=== PATIENT | female | born 1930 | race Caucasian/White ===

== ENCOUNTER 2018-12-26 19:15 | Inpatient (IN) | payer MEDICARE, OTHER ==
--- NOTE | 2018-12-26 19:38 | ED Physician Chart ---
ED Chief Complaint/HPI - Patient Information Date Seen:: 12/26/18 Time Seen:: 19:33 Chief Complaint:: increased depression History of Present Illness:: 88 yr old female from correction with increased depression pt awake answering some questions Allergies:: Allergies Allergy/AdvReac Type Severity Reaction Status Date / Time codeine Allergy Verified 12/26/18 19:22 iodine Allergy Verified 12/26/18 19:23 morphine Allergy Verified 12/26/18 19:21 Penicillins Allergy Verified 12/26/18 19:21 shellfish derived Allergy Verified 12/26/18 19:25 Sulfa (Sulfonamide Allergy Verified 12/26/18 19:22 Antibiotics) vancomycin Allergy Verified 12/26/18 19:23 bellpepper Allergy Uncoded 12/26/18 19:26 iv dye Allergy Uncoded 12/26/18 19:24 Vitals:: Vital Signs - 8 hr 12/26/18 19:26 Temp 97.8 F HR 94 RR 16 BP 156/82 O2 Sat % 97 ED Review of Systems - Review of Systems General/Constitutional: No fever Skin: No skin lesions Head: No headache Eyes: No loss of vision ENT: No earache Neck: No neck pain Cardio Vascular: No chest pain Pulmonary: No SOB GI: No vomiting Musculoskeletal: Bone or joint pain Endocrine: No polyuria Psychiatric: Prior psych history Hematopoietic: No bruising Allergic/Immuno: No urticaria Neurological: No syncope ED Past Medical History - Past Medical History Past Medical History: Other (see nurses notes) ED Physical Exam - Physical Examination General/Constitutional: Well-developed, well-nourished, Alert Head: Atraumatic Eyes: Lids, conjuctiva normal Skin: Nl inspection ENMT: External ears, nose nl Neck: Nontender Respiratory: Nl effort/Exclusion Cardio Vascular: RRR GI: No tenderness/rebounding/guarding : No CVA tenderness Other Extremities comments:: lt knee total knee replacement with knee flexion ctx Misc: Normal back (pt alert answering some questions) ED Assessment - Assessment General Assessment: elderly female geropsych increased depression ED Septic Shock - . Is Septic Shock (SBP<90, OR Lactate>4 mmol\L) present?: No - <6hrs of presentation: Vital Signs: Vital Signs - 8 hr 12/26/18 19:26 Temp 97.8 F HR 94 RR 16 BP 156/82 O2 Sat % 97 ED Reassessment (Disposition) - Reassessment Reassessment:: increased depression geropsych evaluation - Diagnosis Diagnosis:: as above - Patient Disposition Admitted to:: [facility] Condition at Disposition:: Stable
[2018-12-26 19:52] LABS: % BASOPHILS 0.2 % (0.0-2.0); % EOSINOPHILS 3.5 % (0.0-5.0); % LYMPHOCYTES 15.5 % (20.0-50.0); % MONOCYTES 10.9 % (2.0-10.0); % NEUTROPHILS 69.9 % (40.0-80.0); EOSINOPHILE ABSOLUTE 0.3 Th/cmm (0.1-0.4); HEMATOCRIT 40.7 % (41.0-60); HEMOGLOBIN 13.3 gm/dL (12-16); LYMPHOCYTE ABSOLUTE 1.4 Th/cmm (1.5-3.0); MEAN CELL VOLUME 84.6 fl (81-100); MEAN CORPUSCULAR HEMOGLOBIN 27.5 pg (27.0-31.0); MEAN CORPUSCULAR HGB CONC 32.5 pg (28.0-36.0); NEUTROPHILE ABSOLUTE 6.5 Th/cmm (1.8-8.0); PLATELET COUNT 337 Th/cmm (150-400); RED BLOOD COUNT 4.81 Mil/cmm (3.80-5.20); RED CELL DISTRIBUTION WIDTH 16.2 % (11.5-20.0); WHITE BLOOD COUNT 9.2 Th/cmm (4.8-10.8)
[2018-12-26 20:12] LABS: ALB/GLOB RATIO 1.1 (1.0-1.8); ALBUMIN 3.7 gm/dL (3.7-5.3); ALKALINE PHOSPHATASE 138 U/L (34-104); ANION GAP 12.5 (7.0-16.0); BILIRUBIN,TOTAL 0.3 mg/dL (0.3-1.0); BUN - UREA NITROGEN 33 mg/dL (7-25); CALCIUM SERUM 10.2 mg/dL (8.6-10.3); CARBON DIOXIDE 25.7 mEq/L (21.0-31.0); CHLORIDE 102 mEq/L (98-107); CREATININE - SERUM 0.7 mg/dL (0.6-1.2); GLUCOSE 140 mg/dL (70-105); POTASSIUM SERUM 3.2 mEq/L (3.5-5.1); SGOT 12 U/L (13-39); SGPT/ALT 8 U/L (7-52); SODIUM SERUM 137 mEq/L (136-145); TOTAL PROTEIN,SERUM 7.2 gm/dL (6.0-8.3)
[2018-12-26] MEDS ORDERED: KCL 20mEq/100mL Premix 20 MEQ/100 ML PIGGYBACK IV SCH (20:58)
[2018-12-26] MEDS ORDERED: Potassium Chloride 20 mEq ER Tab PO ONE ×2 (21:37→21:38)
[2018-12-26 23:19] VITALS: BP 147/82
[2018-12-26] MEDS ORDERED: Magnesium Hydroxide (MOM) 30 mL UDC PO PRN (23:19)
[2018-12-27] MEDS ORDERED: Albuterol/Ipratropium Neb 3 ML AERS HHN PRN (10:26)
[2018-12-27] MEDS ORDERED: Magnesium Hydroxide (MOM) 30 mL UDC PO PRN (10:26)
[2018-12-27] MEDS ORDERED: DOCUSATE SODIUM 50 MG PO SCH (10:30)
[2018-12-27] MEDS ORDERED: METOLAZONE 2.5 MG PO SCH (10:30)
[2018-12-27] MEDS ORDERED: DILTIAZEM HCL 180 MG PO SCH (10:30)
[2018-12-27] MEDS ORDERED: FAMOTIDINE 20 MG PO SCH (10:30)
[2018-12-27] MEDS ORDERED: Non-Formulary Item 1 EA (Multivitamin [Multivitamins] 1 CAP) PO SCH (10:30)
[2018-12-27] MEDS: Aspirin 81mg Chewable Tab PO SCH (15:13)
[2018-12-27] MEDS: Ferrous Sulfate 325 MG TAB PO SCH (15:13)
[2018-12-27] MEDS ORDERED: Non-Formulary Item 1 EA (Pravastatin Sodium [Pravastatin*] 40 MG) PO SCH (21:00)
--- NOTE | 2018-12-27 21:22 | History & Physical ---
ADMIT DATE: 12/27/2018 CHIEF COMPLAINT: Hallucinations, agitated, confused. HISTORY OF PRESENT ILLNESS: This is an 88-year-old female with history of hypertension, hypercholesterolemia, anemia, GERD, history of stroke, admitted from nursing facility secondary to above complaints under the service of Dr. Martinez. The patient denies chest pain or shortness of breath. PAST MEDICAL HISTORY: As mentioned in history of present illness. PAST SURGICAL HISTORY: Denies surgeries in the past. ALLERGIES: CODEINE, IODINE, MORPHINE, PENICILLIN. MEDICATIONS: Albuterol, Atrovent, vitamin C, Dilaudid, ibuprofen, Tylenol, aspirin, diltiazem, Colace, famotidine, iron, hydralazine, metolazone, multivitamins, Zofran, paroxetine, Zolpidem, pravastatin, sennoside. FAMILY HISTORY: Noncontributory. SOCIAL HISTORY: The patient is a [facility] patient requiring 24-hour total care. REVIEW OF SYSTEMS: This is limited secondary to pain, comatose state. We will try to obtain more detailed review of systems at a later date by talking to other family members. There is a daughter, Barbara Salvador at [phone]. We will also try to get information from nursing staff at her facility in [place] at [phone]. PHYSICAL EXAMINATION: VITAL SIGNS: Blood pressure 128/67, respiration 20, pulse 86, temperature 97.9. GENERAL: Elderly female, appears her stated age, mildly obese. NECK: Supple. No mass. LUNGS: Equal breath sounds, few rhonchi. HEART: Regular rate and rhythm with systolic ejection murmur. ABDOMEN: Soft, globular. EXTREMITIES: Positive excoriations, positive contracture, atrophy. ____ on right upper extremity and right lower extremity. Gait not seen. LABORATORY DATA: WBC 9, hemoglobin 13, platelets 337. Sodium 137, potassium is 3.2, BUN 33, creatinine 0.7, blood sugar 140, alkaline phosphatase 138. ASSESSMENT AND PLAN: Hypertension, hypercholesterolemia, anemia, hypokalemia, gastroesophageal reflux disease, obesity, history of stroke with right-sided contracture and weakness. We will continue the patient on aspirin and cholesterol medications. Continue calcium channel blanquita. The patient was given potassium. Continue fall precautions. Continue with current care. We will follow with you, Dr. Martinez. [facility]# [id number]
--- NOTE | 2018-12-28 01:21 | Psychiatric Evaluation ---
DATE OF SERVICE: PSYCHIATRIC INITIAL EVALUATION AND MENTAL STATUS EXAMINATION AGE: 88. SEX: Female. PHYSICIAN: Dr. Martinez. CHIEF COMPLAINT: Increased depression. HISTORY OF PRESENT ILLNESS: The patient is an 88-year-old female who was transferred to the hospital from [facility] because of increased depression. The patient also has not been able to eat and her appetite is much decreased, also questionable weight loss. The patient also has been having lack of motivations and lack of energy. She has been also interacting minimally with others and wants to be left alone most of the time. The patient also has been having sad affect. Also, her fluid intake has been poor. PAST PSYCHIATRIC HISTORY: The patient has history of dementia. PAST MEDICAL HISTORY: The patient has a history of anemia as well as gastroesophageal reflux disease and hypertension. SOCIAL HISTORY: The patient lives in [facility]. No known alcohol or street drug use. ALLERGIES: The patient is allergic to IODINE, CODEINE, SULFA, PENICILLIN, IV DYE, PEREZ PEPPER AND SHELLFISH. MENTAL STATUS EXAMINATION: The patient appears her stated age. Flat affect. Depressed mood. The patient kept staring at me and she did not answer any questions. The patient is also guarded and withdrawn. She seemed to be confused. The patient did not answer questions regarding hallucinations or delusions or regarding suicide or homicide. The patient is alert, but seems to be disoriented to place, person and the situation. Impaired immediate, recent and remote memories that she was not even able to tell me her birthday, which might be because of either dementia or because of her depression. Poor insight and poor judgment. ASSESSMENT: PRIMARY DIAGNOSIS: Unspecified psychosis. Rule out depressive mood disorder with psychosis. SECONDARY DIAGNOSIS: Dementia, moderate to severe, with psychotic features. TREATMENT PLAN: We will monitor the patient's behavior and condition closely. We will continue Paxil same dose and will adjust psychotropic medications. We will work on behavioral modification. ESTIMATED LENGTH OF STAY: 5-7 days. THE PATIENT'S STRENGTHS AND WEAKNESSES: The patient's strength is not clear at this time. Weaknesses are her ineffective coping. AFTER DISCHARGE PLANS: The patient will return to [facility] and outpatient treatment and followup will continue there. CRITERIA FOR DISCHARGE: The patient will not be as depressed and will stabilize psychotropic medications and will establish outpatient treatment plans. JOB# [id number]
--- NOTE | 2018-12-28 06:30 | Progress Notes ---
DATE: 12/28/2018 PSYCHIATRIC NOTE SUBJECTIVE: Chart was reviewed and the patient interviewed. Also discussed the patient's condition with the staff and reviewed records and labs. The patient is still quiet and does not talk much. She seems to be selectively mute. The patient also is still easily agitated, especially during helped her with her ADLs and the patient wants to be left alone. She seems to be more depressed and she still has poor appetite and her eating and drinking are poor. Otherwise, the patient is cooperative and compliant with taking her medications. ASSESSMENT: The patient seems to be still severely depressed. TREATMENT PLAN: The patient has been taking Paxil at a dose of 20 mg with no benefits. We will cross-titrate Paxil with Lexapro and will decrease Paxil to 10 mg every day and to start Lexapro 10 mg every day. Also, continue to work on behavior modification and followup. JOB# [id number]
[2018-12-28] MEDS: Multivitamin Tab PO SCH (09:13)
[2018-12-28] MEDS: Metolazone 5 MG TAB PO SCH (09:13)
[2018-12-28] MEDS: Diltiazem CD 180 mg C24 PO SCH (09:13)
[2018-12-28] MEDS: Ferrous Sulfate 325 MG TAB PO SCH (09:13)
[2018-12-28] MEDS: Aspirin 81mg Chewable Tab PO SCH (09:14)
--- NOTE | 2018-12-28 12:15 | History & Physical ---
ADMIT DATE: INTERNAL MEDICINE CONSULT REASON FOR CONSULT: Medical management, history of hypertension, hyperlipidemia. HISTORY OF PRESENT ILLNESS: The patient is an 88-year-old female who resides at a local snf with history significant for depression, hyperlipidemia, essential hypertension, chronic anemia, acid reflux disease who was transferred to the ER secondary to worsening depression. The patient has been admitted to the Geropsych memb[facility] and appears to be comfortable with no complaints. PAST MEDICAL HISTORY: As noted above. She also per notes has a history of previous shortness of breath likely secondary to his CHF. History of CHF. She has chronic lung disease. PAST SURGERIES: History of left total knee replacement. FAMILY HISTORY: Noncontributory to this admission. SOCIAL HISTORY: Denies any tobacco, ETOH or illicit drug usage. ALLERGIES: Allergic to SULFA, CODEINE, VANCOMYCIN and IODINE. She also is allergic to some foods including PEREZ PEPPERS and SHELLFISH. OUTPATIENT MEDICATIONS: Multivitamins 1 tab every day, vitamin C 500 mg b.i.d., famotidine 20 mg q.a.m., vitamin D3 at 1000 international units daily, pravastatin 40 mg daily, aspirin 81 daily, senna and docusate 8.6/50 mg 1 tab b.i.d., metolazone 2.5 daily, iron sulfate 325 daily, hydralazine 10 mg q. 4 p.r.n., diltiazem 180 mg daily, Atrovent via nebulizer q. 6 p.r.n. for SOB, Paxil 20 mg daily. REVIEW OF SYSTEMS: CONSTITUTIONAL: She denies any fever or chills. No recent weight loss. CARDIOVASCULAR: Denies any chest pain, any CHF symptomatology. PULMONARY: No cough or phlegm production, no shortness of breath. GASTROINTESTINAL: No bowel habit changes. GENITOURINARY: No bladder habit changes. NEUROLOGIC: No changes in vision, no headaches. PHYSICAL EXAMINATION: VITAL SIGNS: Temperature 98.0, pulse 82, respirations 19, BP 147/82, satting 98% on room air. GENERAL: She is a well-developed female who appears to be comfortable, in no distress. HEAD AND NECK: Normocephalic, atraumatic. Pupils are reactive to light. Extraocular movements are intact. Oropharynx is moist and clear. CARDIAC: Regular rate and rhythm without any murmurs. LUNGS: Clear to auscultation bilaterally. ABDOMEN: Supple, nontender, nondistended, normoactive bowel sounds. NEUROLOGIC: Nonfocal exam. LABORATORY DATA: CBC was essentially within normal limits. Potassium 3.2, chloride 102. Sodium 137, BUN 33, creatinine 0.7, glucose 140, AST 12, ALT 8, alkaline phosphatase 138. DIAGNOSTICS: None current. ASSESSMENT: 1. Depression with acute exacerbation. 2. History of essential hypertension. 3. History of congestive heart failure -- clinically stable. 4. History of hyperlipidemia. 5. History of acid reflux disease. 6. History of anemia. PLAN: The patient has been admitted to the Geropsych [facility] for further management and care. The patient will be kept on her current medication scheduled. She will be placed on clonidine p.r.n. for SBP greater than 160 and we will monitor her blood pressure on a daily basis and we will adjust as needed. Her potassium has been repleted by ER staff. JOB# [id number]
[2018-12-29] MEDS: Multivitamin Tab PO SCH (08:45)
[2018-12-29] MEDS: Diltiazem CD 180 mg C24 PO SCH (08:45)
[2018-12-29] MEDS: Metolazone 5 MG TAB PO SCH (08:45)
[2018-12-29] MEDS: Ferrous Sulfate 325 MG TAB PO SCH (08:46)
[2018-12-29] MEDS: Aspirin 81mg Chewable Tab PO SCH (08:46)
--- NOTE | 2018-12-30 02:08 | Progress Notes ---
DATE: 12/29/2018 Case was discussed with staff of the patient, reviewed records. Covering for Dr. Martinez. An 88-year-old female who was admitted on 12/26/2018, transferred from [facility] because of increasing depression, has not been able to eat and her appetite is much decreased questionable weight loss, having lack of motivation and energy, interacting minimally with others, wants to be left alone with a history of dementia. The patient continues to isolate herself. She is unable to participate in meaningful conversation at times, selectively mute, does not talk much, easily agitated, especially during helping her with her ADLs, depressed, and overwhelmed. She is on Paxil 20 mg with no side effects. Dr. Martinez is titrating Paxil, adding Lexapro, and decreasing the Paxil. Continues to have poor insight, demented, and confused. We will continue to work with the patient in group therapy, milieu therapy, and adjust the medications as needed. JOB# [id number]
[2018-12-30] MEDS: Metolazone 5 MG TAB PO SCH (09:47)
[2018-12-30] MEDS: Diltiazem CD 180 mg C24 PO SCH (09:48)
[2018-12-30] MEDS: Aspirin 81mg Chewable Tab PO SCH (09:49)
[2018-12-30] MEDS: Ferrous Sulfate 325 MG TAB PO SCH (09:50)
[2018-12-30] MEDS: Multivitamin Tab PO SCH (09:50)
--- NOTE | 2018-12-30 14:31 | Progress Notes ---
DATE: 12/30/2018 Case was discussed with staff of the patient, reviewed records. Covering for Dr. Martinez. The patient continues to be unpredictable and impulsive. Continues to be selectively mute at times, easily agitated, unable to make safe plan for her self-care. The patient gets more agitated when staff tried to help with her ADLs. Continues to have poor insight. No side effects with the medication, no sedation, no nausea and no extrapyramidal symptoms. We will continue the patient in group therapy, milieu therapy, and adjust medication as needed. JOB# [id number]
[2018-12-31] MEDS: Aspirin 81mg Chewable Tab PO SCH (09:40)
[2018-12-31] MEDS: Diltiazem CD 180 mg C24 PO SCH (09:41)
[2018-12-31] MEDS: Metolazone 5 MG TAB PO SCH (09:41)
[2018-12-31] MEDS: Multivitamin Tab PO SCH (09:42)
[2018-12-31] MEDS: Ferrous Sulfate 325 MG TAB PO SCH (09:42)
[2019-01-01] MEDS: Metolazone 5 MG TAB PO SCH (10:03)
[2019-01-01] MEDS: Diltiazem CD 180 mg C24 PO SCH (10:05)
[2019-01-01] MEDS: Multivitamin Tab PO SCH (10:05)
[2019-01-01] MEDS: Aspirin 81mg Chewable Tab PO SCH (10:05)
[2019-01-01] MEDS: Ferrous Sulfate 325 MG TAB PO SCH (10:05)
--- NOTE | 2019-01-01 19:13 | Progress Notes ---
DATE: PSYCHIATRIC PROGRESS NOTE SUBJECTIVE: Chart reviewed and the patient interviewed. Also discussed the patient's condition with the staff and reviewed records and labs. The patient continued to be confused. The patient also is still anxious and is still restless. She also is interacting minimally and she still needs lots of redirections. Also, episodes of agitation and irritability. Otherwise, the patient is compliant with taking her medications with no side effects of medications. ASSESSMENT: Primary diagnosis, the patient is still agitated and confused. TREATMENT PLAN: Continue to monitor her behavior and her condition closely. Also, continue adjusting psychotropic medications and working on behavioral modification. JOB# [id number]
--- NOTE | 2019-01-01 23:25 | Progress Notes ---
DATE: 01/01/2019 SUBJECTIVE: Chart reviewed and patient interviewed. Also discussed the patient's condition with the staff and reviewed records and labs. The patient is still depressed and is still selectively mute. Patient also is still withdrawn and interacting minimally with others. Patient also is still confused and only oriented to her name. Otherwise, for some reason, patient started yesterday on Paxil while she is taking Lexapro and Paxil is the wrong medication. ASSESSMENT: The patient is still depressed and confused. TREATMENT PLAN: We will continue monitoring her behavior closely. Also, continue Lexapro, but will discontinue Paxil and we will continue to follow up and work on ineffective coping. JOB# [id number]
[2019-01-02 08:48] LABS: CHOLESTEROL 155 mg/dL (<200); HDL -HIGH DENSITY LIPOPROTEIN 53 mg/dL (23-92); TRIGLYCERIDES 130 mg/dL (<150)
[2019-01-02] MEDS: Aspirin 81mg Chewable Tab PO SCH (09:22)
[2019-01-02] MEDS: Multivitamin Tab PO SCH (09:22)
[2019-01-02] MEDS: Ferrous Sulfate 325 MG TAB PO SCH (09:22)
[2019-01-02] MEDS: Metolazone 5 MG TAB PO SCH (09:22)
[2019-01-02] MEDS: Diltiazem CD 180 mg C24 PO SCH (09:23)
--- NOTE | 2019-01-02 20:52 | Progress Notes ---
DATE: SUBJECTIVE: Chart was reviewed and the patient interviewed. Also discussed the patient's condition with the staff and reviewed records and labs. The patient is still isolated and withdrawn. Minimum interaction with others. The patient seems to be less agitated and less irritable, but she still tends to isolate herself and is in depressed mood. She also is selectively mute. On the other hand, the patient has continued to comply with taking her medications with no side effects of medications. ASSESSMENT: The patient is still depressed and needs close monitoring. TREATMENT PLAN: Continue to monitor her behavior and condition closely and continue adjusting psychotropic medications and work on behavioral modification. [facility]# [id number]
[2019-01-03] MEDS: Ferrous Sulfate 325 MG TAB PO SCH (09:14)
[2019-01-03] MEDS: Multivitamin Tab PO SCH (09:14)
[2019-01-03] MEDS: Aspirin 81mg Chewable Tab PO SCH (09:14)
[2019-01-03] MEDS: Metolazone 5 MG TAB PO SCH (09:15)
[2019-01-03] MEDS: Diltiazem CD 180 mg C24 PO SCH (09:16)
--- NOTE | 2019-01-04 22:51 | Discharge Summary ---
DATE OF DISCHARGE: 01/03/2019 AGE: 88. SEX: Female. PHYSICIAN: Dr. Martinez. FINAL DIAGNOSIS: PRIMARY DIAGNOSIS: Unspecified psychosis. SECONDARY DIAGNOSIS: Dementia, moderate to severe, with psychotic features. REASON FOR HOSPITALIZATION: The patient was admitted to the hospital because of increased agitation and because of depression and the patient had a poor appetite and she had also lost some weight. HOSPITAL COURSE: The patient was severely depressed and anxious. The patient ____ poor appetite. The patient was given Lexapro in a dose of 10 mg every day. The patient's appetite was also monitored closely. The patient was calm and interactive slightly more. The patient's daughter insisted that patient's mother ____ to the hospital and the patient was discharged back to [facility]. Physical exam of the patient was basically ____ she came with no major medical issues. AFTER-DISCHARGE PLANS: The patient discharged from the hospital and returned to [facility] and outpatient treatment and followup to continue there. EXPECTED OUTCOME AFTER DISCHARGE: Fair if the patient continued to take her psychotropic medications and continue to follow up with discharge plans. JOB# [id number]
== END 2019-01-03 16:20 | DRG 885 ==
LOC: ER 19:15 → GERO2 22:05 → GERO 01-01 16:29
PROVIDERS: ADMIT Psychiatry & Neurology Psychiatry; ATTEND Psychiatry & Neurology Psychiatry
DX: F29 Unspecified psychosis not due to a substance or known physiological condition (principal); I11.0 Hypertensive heart disease with heart failure; F03.91 Unspecified dementia, unspecified severity, with behavioral disturbance; I69.351 Hemiplegia and hemiparesis following cerebral infarction affecting right dominant side; K21.9 Gastro-esophageal reflux disease without esophagitis; E78.5 Hyperlipidemia, unspecified; D64.9 Anemia, unspecified; I50.9 Heart failure, unspecified; Z96.652 Presence of left artificial knee joint; E78.00 Pure hypercholesterolemia, unspecified; E87.6 Hypokalemia; F32.9 Major depressive disorder, single episode, unspecified; R63.0 Anorexia; E66.9 Obesity, unspecified; Z68.26 Body mass index [BMI] 26.0-26.9, adult; Z88.2 Allergy status to sulfonamides; Z88.5 Allergy status to narcotic agent; Z88.1 Allergy status to other antibiotic agents; Z88.0 Allergy status to penicillin
CPT/HCPCS: 36415-UA; 80053-TC; 80061-TC; 83036-90; 85025-TC; 94760; J3480